=== PATIENT | female | born 2000 | race Two or more races ===

== ENCOUNTER 2020-09-14 04:28 | Emergency (ER) | payer MEDICAID ==
[~2020-09-14] VITALS: Ht 162.6 cm; Wt 88.5 kg
--- NOTE | 2020-09-14 04:31 | NUR ---
PT AAOX4. AMBULATORY WITH STEADY GAIT. BIBRA 99, C/O EPIGASTRIC PAIN X2 MONTHS AGO. +VOMITING. PT PLACED IN BED 9 ON MONITOR AND PULSE OX. VSS. NO ACUTE DISTRESS NOTED. RR EVEN AND UNLABORED. SKIN WARM AND INTACT. MD AT BEDSIDE FOR EVAL. AWAITING ORDERS. WILL CONTINUE TO MONITOR.
[2020-09-14] MEDS ORDERED: ONDANSETRON HCL/PF 4 MG/2 ML VIAL ONE (04:42)
--- NOTE | 2020-09-14 04:59 | NUR ---
Patient is resting comfortably in bed. Easily aroused. VSS.
[2020-09-14] MEDS ORDERED: ONDANSETRON HCL/PF 4 MG/2 ML VIAL IVP ONE (05:00)
[2020-09-14] MEDS ORDERED: IV NS 0.9% 1,000 ML BAG IV ONE (05:00)
--- NOTE | 2020-09-14 06:06 | NUR ---
Patient discharged to home in stable condition. Written and verbal after care instructions given. Patient verbalizes understanding of instruction. PT ambulatory with a steady gait IV removed. Catheter intact and site benign. Pressure and 4x4 applied to site. No bleeding noted.
[2020-09-14 06:24] VITALS: BP 148/89
== END 2020-09-14 06:25 | disposition home or self-care (01) ==
LOC: ER 04:30
DX: R11.2 Nausea with vomiting, unspecified (principal); R10.13 Epigastric pain
CPT/HCPCS: 96361; 96374; 99283; J2405; J7030